=== PATIENT | female | born 1960 | race African-American/Black ===

== ENCOUNTER → 2016-09-22 | Outpatient (CLI) | payer BC ==
[~2016-09-22] MED LIST: ANTIVERT PO; FAMVIR500 M1 PO; LEVOXYL50 MCG PO; METFORMIN HCL500 M1 PO; NAPROXEN500 M1 PO; PRAVASTATIN SOD40 MG PO; ZOFRAN PO
--- NOTE | ~2016-09-22 | NM86 ---
[facility] A Service of [facility] & [facility] RADIOLOGY TEXT RESULTS PATIENT: MAHENDAR ARRINGTON LOCATION: [facility] : 56 UNIT #: [id number] AGE: [address]: Ben Stone MD SEX: F ORDER DR: [id number] [facility] [address] [place], [place] [address] [id number] O MR#: [id number] Acc #: [id number] NAME: MAHENDRA ARRINGTON : 1960 SEX: F STUDY DATE/TIME: 09/22/2016 7:43 UNIT: [facility] ROOM: STUDY DESCRIPTION: NM Thyroid Img W Uptake Attending Physician: Ben Stone M.D. Referring Physician: Ben Stone M.D. Ordering Physician: Ben Stone M.D. Primary Care Physician: Inna Mohr M.D. MEDICAL IMAGING REPORT This report is preliminary unless electronic signature is present EXAM Thyroid uptake and scan. HISTORY Hyperthyroidism over the past year. TECHNIQUE The patient ingested 165.9 mCi of I-123 in capsule form. The calculated 24-hour radioactive iodine uptake is 51%, which is abnormally high. Scanning of the gland in 4 projections shows normal tracer activity with no focal hot or cold nodules. IMPRESSION Abnormally increased 24-hour uptake of 51%. Dictated by... Mark Neri M.D. THIS IS AN ELECTRONICALLY VERIFIED REPORT Mark Neri M.D. at 09/23/2016 4:41 PM Debra TD: 09/23/2016 11:56 JOB #: [id number] MEDICAL IMAGING REPORT Page 1 of 1 COPY
== END | disposition home or self-care (01) ==
LOC: CNUC 06:59
DX: E05.90 Thyrotoxicosis, unspecified without thyrotoxic crisis or storm (principal); R94.6 Abnormal results of thyroid function studies
CPT/HCPCS: 78014; A9516